=== PATIENT | female | born 1940 | race Caucasian/White ===

== ENCOUNTER 2018-01-02 04:56 | Inpatient (IN) ==
[2017-12-27 12:50] LABS: Appearance,Urine CLEAR; Bacteria,Urine FEW /hpf (0); Bilirubin,Urine NEG (NEG); Color,Urine YELLOW; Glucose,Urine (UA) NEGATIVE (NEG); Leukocyte Esterase,Urine NEG /uL (NEG); Mucus,Urine MANY /hpf (0); Protein,Urine NEG (NEG); Specific Gravity,Urine 1.019 (1.000-1.035); Urine Blood 0.2 mg/dL (<0.03); Urine Hyaline Cast 1 /lpf (0-2); Urine RBC 1 /hpf (0-1); Urine Squamous Epithelial Cell 7 /hpf (0-4); Urine WBC < 1 /hpf (0-4); Urobilinogen,Urine NEG (NEG)
[2017-12-27 13:26] LABS: Basophils # (Auto) 0 K/mcL (0.0-0.3); Basophils % (Auto) 0.6 % (0.0-2.0); Eosinophils # (Auto) 0.2 K/mcL (0.0-0.7); Eosinophils % (Auto) 3.6 % (0.0-7.0); Granulocytes % (Auto) 57.7 % (38.0-78.0); Lymphocytes # (Auto) 1.6 K/mcL (1.5-4.8); Lymphocytes % (Auto) 29.5 % (15.5-49.0); Mean Corpuscular HGB Conc 34.8 g/dL (31.0-36.0); Mean Corpuscular Hemoglobin 33.4 pg (26.0-34.0); Monocytes # (Auto) 0.5 K/mcL (0.1-0.9); Monocytes % (Auto) 8.6 % (1.0-12.0); Platelet Count 203 K/mcL (140-440); RBC 4.48 M/mcL (4.00-5.20); Red Cell Distribution Width 13.6 % (11.5-14.5)
[2017-12-27 13:31] LABS: Blood Urea Nitrogen 17 mg/dl (8-23)
[2018-01-02] MEDS ORDERED: ceFAZolin 1 GM VIAL IV SCH (07:00)
[2018-01-02] MEDS ORDERED: PREGABALIN 75 MG CAPSULE PO SCH (07:00)
[2018-01-02] MEDS ORDERED: oxyCODONE 10 MG TAB.ER.12H PO SCH (07:00)
[2018-01-02] MEDS ORDERED: CELECOXIB 200 MG CAPSULE PO SCH (07:00)
[2018-01-02] MEDS ORDERED: ACETAMINOPHEN 500 MG TABLET PO SCH (07:00)
[2018-01-02] MEDS ORDERED: DEXAMETHASONE 10 MG/ML VIAL IV ONE (07:40)
[2018-01-02] MEDS ORDERED: MIDAZOLAM 2 MG/2 ML VIAL IV ONE (07:40)
[2018-01-02] MEDS ORDERED: LIDOCAINE HCL/PF 100 MG/5 ML SYRINGE IV ONE (07:40)
[2018-01-02] MEDS ORDERED: ROPIVACAINE HCL/PF 20 ML VIAL IJ ONE (07:40)
[2018-01-02] MEDS ORDERED: PROPOFOL 200 MG/20 ML VIAL IV ONE (07:40)
[2018-01-02] MEDS ORDERED: KETAMINE 100 MG/ML ML IV ONE (07:40)
[2018-01-02] MEDS ORDERED: ePHEDrine 50 MG/ML AMPUL IV ONE (07:40)
[2018-01-02] MEDS ORDERED: fentaNYL 100 MCG/2 ML VIAL IV ONE (07:40)
[2018-01-02] MEDS ORDERED: GLYCOPYRROLATE 0.2 MG/ML VIAL IV ONE (07:40)
[2018-01-02] MEDS ORDERED: SUCCINYLCHOLINE 20 MG/ML ML IV ONE (07:40)
[2018-01-02] MEDS ORDERED: ONDANSETRON 4 MG/2 ML VIAL IV ONE (07:40)
[2018-01-02] MEDS ORDERED: TRANEXAMIC ACID 1,000 MG/10 ML VIAL IV ONE ×2 (07:40→08:50)
[2018-01-02] MEDS ORDERED: GENTAMICIN SULFATE 800 MG/20 ML VIAL IR ONE (08:13)
[2018-01-02] MEDS ORDERED: MEPERIDINE 25 MG/ML SYRINGE IV PRN (08:45)
[2018-01-02] MEDS ORDERED: LACTATED RINGERS 1,000 ML IV SCH (08:45)
[2018-01-02] MEDS ORDERED: IPRATROPIUM/ALBUTEROL 3 ML AMPUL.NEB NEB PRN (08:45)
[2018-01-02] MEDS ORDERED: NALOXONE HCL 0.4 MG/ML VIAL IV PRN (08:45)
[2018-01-02] MEDS ORDERED: METHOCARBAMOL 1,000 MG/10 ML VIAL IV PRN (08:45)
[2018-01-02] MEDS ORDERED: FLUMAZENIL 0.1 MG/ML ML IV PRN (08:45)
[2018-01-02] MEDS ORDERED: ONDANSETRON 4 MG/2 ML VIAL IV PRN ×2 (08:45→08:50)
[2018-01-02] MEDS ORDERED: HYDROmorphone 2 MG/ML VIAL IV PRN ×2 (08:45→08:50)
[2018-01-02] MEDS ORDERED: PROMETHAZINE 25 MG/ML VIAL IV PRN (08:45)
[2018-01-02] MEDS ORDERED: METOPROLOL TARTRATE 5 MG/5 ML VIAL IV PRN (08:45)
[2018-01-02] MEDS ORDERED: fentaNYL 100 MCG/2 ML VIAL IV PRN (08:45)
[2018-01-02] MEDS ORDERED: ATROPINE SULFATE 0.4 MG/ML VIAL IV PRN (08:45)
[2018-01-02] MEDS ORDERED: diphenhydrAMINE 50 MG/ML VIAL IV PRN (08:45)
[2018-01-02] MEDS ORDERED: ePHEDrine 50 MG/ML AMPUL IV PRN (08:45)
[2018-01-02] MEDS ORDERED: ACETAMINOPHEN 325 MG TABLET PO PRN (08:50)
[2018-01-02] MEDS ORDERED: HYDROCODONE/APAP 7.5/325MG TABLET PO PRN (08:50)
[2018-01-02] MEDS ORDERED: KETOROLAC 15 MG/ML VIAL IV PRN (08:50)
[2018-01-02] MEDS ORDERED: BISACODYL 10 MG SUPP.RECT PR PRN (08:50)
[2018-01-02] MEDS ORDERED: FLEETS ADULT ENEMA PR PRN (08:50)
[2018-01-02] MEDS ORDERED: BENZOCAINE/MENTHOL 1 LOZENGE PO PRN (08:50)
[2018-01-02] MEDS ORDERED: POLYETHYLENE GLYCOL 3350 17 GM PACKET PO PRN (08:50)
[2018-01-02] MEDS ORDERED: TEMAZEPAM 15 MG CAPSULE PO PRN (08:50)
[2018-01-02] MEDS ORDERED: MAGNESIUM HYDROXIDE 30 ML ORAL.SUSP PO PRN (08:50)
--- NOTE | 2018-01-02 09:23 | Operative Note ---
DATE OF OPERATION: 01/02/2018 PREOPERATIVE DIAGNOSIS: Right shoulder rotator cuff arthropathy and severe degenerative arthritis. POSTOPERATIVE DIAGNOSIS: Right shoulder rotator cuff arthropathy and severe degenerative arthritis with addition of biceps tendinopathy and large spurs. PROCEDURE: Right reverse total shoulder and biceps tenodesis of the right shoulder using Maninder components. SURGEON: Ariel Mcnamara MD SUPERVISOR [employer]: Gerson Dykes PA-C ANESTHESIA: General LMA anesthesia. COMPLICATIONS: None. IMPLANTS: Maninder implant. DESCRIPTION OF PROCEDURE: The patient was brought to the operating room and put to sleep with general LMA anesthesia. Once asleep, the patient had the right shoulder sterilely prepped and draped in the usual sterile fashion. Once this was confirmed as the operative site, we proceeded with the case. Ioban had been placed over the skin. Preop antibiotics and tranexamic acid had been given prior to the incision. We made a deltopectoral approach to the shoulder on the right side. Once this was done, we then made a deltopectoral approach, exposed the shoulder, removed the subscap and released this. This was tagged. We dislocated the shoulder, made the neck cut at 130 degrees with the guide with 20 degrees of retroversion. Once done, we did dislocate the humerus and made the neck cut. We placed a plate over the bone and then subluxed this posteriorly. The finding showed a rotator cuff tear, supraspinatus, infraspinatus, and biceps tendinopathy, and the biceps had been identified and released. I performed a biceps tenodesis in the bicipital groove in the subpectoral region using a figure-of-8 stitch of #2 FiberWire. This was secured, we subluxed the humeral head posteriorly and then performed a 360 degree capsular release. We placed a pinhole in the central portion of the glenoid at 10 degrees of inclination. This was reamed to the size of 36 removing osteophytes. We did place a central screw measuring 36 mm in length and metaglene. The glenosphere was a 36 mm glenosphere, 2 mm of offset, 2 mm of eccentricity. Once this was securely in place, we placed three additional screws per nurse's note. This was very secured. We then prepared the humerus. The humerus was broached up to size 8. We broached to a size 8 and trialed the standard thickness poly. This fit very nicely. We then implanted the standard thickness poly. We did place cement because the quality of the bone was very poor and this was allowed to set up. I placed a standard thickness poly. This was tapped into place and reduced. We irrigated thoroughly, repaired the deltopectoral interval and the skin with 2-0 Vicryl and adhesive closure. The patient tolerated this well without complication. RBH:wm Job ID: [id number] Doc ID: [id number] Ariel Mcnamara MD
--- NOTE | 2018-01-02 09:45 | XRay Report ---
CLINICAL INFORMATION: Postsurgical follow-up TECHNIQUE: AP and Y view of the right shoulder COMPARISON: None. FINDINGS: Status post right reverse shoulder arthroplasty. Normal anatomic alignment. There is postsurgical soft tissue gas. Scapula and clavicle are negative. No fracture. IMPRESSION: Status post reverse shoulder arthroplasty Interpreted and Authenticated by: Bonilla Villalobos 01/02/18
[2018-01-02] MEDS: DOCUSATE SODIUM 100 MG CAPSULE PO SCH ×2 (12:07→21:17)
[2018-01-02] MEDS: 0.45 % SODIUM CHLORIDE 1,000 ML IV SCH ×2 (12:07→20:00)
[2018-01-02] MEDS: 0.9 % SODIUM CHLORIDE 10 ML SYRINGE IV SCH ×3 (12:18→23:31)
[2018-01-02] MEDS: ceFAZolin 1 GM VIAL IV SCH ×2 (16:06→23:31)
[2018-01-02] MEDS ORDERED: SENNOSIDES 1 TABLET PO SCH (21:00)
[2018-01-03] MEDS: 0.9 % SODIUM CHLORIDE 10 ML SYRINGE IV SCH (06:40)
--- NOTE | 2018-01-03 07:28 | Orthopedic Progress Note ---
Subjective Patient information: Note initiated : 01/03/18 at 7:27 am Service Date, if different from initiated Date: [] Patient: Leslie Aguilera 77 y/o F admitted on 01/02/18 for Right Reverse Total Shoulder Arthroplasty with . Chief Complaint: [Pt is stable this morning on post operative day 1 without any significant concerns or complaints. Patients vital signs have remained stable. Patients dressing is dry and is grossly instact from a neurovascular and motor standpoint. Patients 10 point ROS is otherwise negative. ] Objective Vital signs: Vital Signs Temp Pulse Resp BP BP Pulse Ox 01/03/18 04:00 97.4 F 70 16 129/67 97 01/02/18 23:28 98.0 F 68 16 123/65 96 01/02/18 19:54 97.3 F 65 16 129/74 92 01/02/18 19:50 16 96 01/02/18 15:46 97.6 F 16 145/79 95 01/02/18 12:55 135/81 96 01/02/18 11:55 145/81 95 01/02/18 11:25 143/69 95 01/02/18 10:55 151/82 90 01/02/18 10:40 154/86 90 01/02/18 10:25 145/83 96 01/02/18 10:10 157/94 96 01/02/18 09:55 147/84 96 01/02/18 09:48 97.3 F 89 17 139/68 99 01/02/18 09:44 97.3 F 96 H 17 135/63 94 01/02/18 09:33 96 H 17 131/63 98 01/02/18 09:28 98 H 17 137/66 98 01/02/18 09:23 97.9 F 99 H 21 140/83 100 01/02/18 09:18 95 H 15 146/67 100 01/02/18 09:13 94 H 16 148/77 100 01/02/18 09:08 97.9 F 115 H 17 149/80 100 Intake and Output 01/02/18 01/03/18 01/03/18 21:59 05:59 13:59 Intake Total 1718 / 1718 180 / 180 Output Total 1600 / 1600 1550 / 1550 Balance 118 / 118 -1370 / -1370 Intake: IV 918 / 918 Sodium Chloride 0.45% 1,000 ml 918 / 918 @ 100 mls/hr IV .Q10H ARMAND Rx#: [id number] Oral 800 / 800 180 / 180 Output: Void Amount 1600 / 1600 1550 / 1550 Other: Weight 153 lb 8 oz Intake & Output: Intake & Output 01/02/18 01/03/18 01/03/18 21:59 05:59 13:59 Intake Total 1718 / 1718 180 / 180 Output Total 1600 / 1600 1550 / 1550 Balance 118 / 118 -1370 / -1370 Weight 153 lb 8 oz Intake: IV 918 / 918 Sodium Chloride 0.45% 1,000 ml 918 / 918 @ 100 mls/hr IV .Q10H ARMAND Rx#: [id number] Oral 800 / 800 180 / 180 Output: Void Amount 1600 / 1600 1550 / 1550 Incision: Yes healing Incision clean and dry: Yes Dressing: Yes clean Weight bearing status: full Neurological exam IM: Yes motor sensory intact, Yes neurovascular intact Extremities exam IM: Yes Foot pink and warm, Yes neurovascular intact - Labs CBC & BMP: 12/27/17 11:24 12/27/17 11:24 Labs: Orthopedic Labs 12/27/17 11:24 PT 13.0 INR 1.0 APTT 31 12/27/17 11:24 Hgb 15.0 Hct 43.0 Assessment and Plan (1) History of reverse total replacement of right shoulder joint The patient has been educated regarding dressing care, Physical Therapy recommendations, home exercises, restrictions, and follow up appointments. The patient has had all necessary DME prescribed. The patient has remained relatively stable during their hospital course.Leave Dermabond patch intact until followup Status: Acute
--- NOTE | 2018-01-03 07:31 | Discharge Summary ---
Ortho Discharge - TSA - Patient Instructions Diet: Regular Diet Activity: activity as tolerated, weight bearing as tolerated Total Shoulder Protocol: Leave immobilizer in place except for bathing and ROM. Abduction pillow. Continue to wear sling until seen by physician. Codman Pendulum : These exercises use momentum produced by your body to move your shoulder joint. Bend your knees and shift your weight to your front leg, then back, allowing your arm to swing in the same directions. Using the same technique, alternately shift your weight between your right and left legs, allowing your arm to swing from side to side. These exercises are also performed in counterclockwise and clockwise circular motions. Typically these exercises are performed several times per day, for a set number repetitions or minutes, such as 20 times in a row or 5 minutes at a time. Dressing Care: May shower in 2 days - Problem Maintenance (1) History of reverse total replacement of right shoulder joint Status: Acute - Follow Up Plan Follow Up Appointments: Gerson Dykes PA-C [Physician Thermal Cutting Tracer Machine Operator] - 01/17/18 10:00 am Disposition: Home, Self-Care Prognosis: Good Rehab Potential: Good I certify that the patient requires SNF services: No Overall status at discharge: patient is progressing back to baseline - Orders For Discharge Prescriptions: Docusate Sodium [Colace] 100 mg PO BID #60 cap Hydrocodone/APAP 7.5/325Mg [Terril 7.5-325Mg] 1 - 2 tab PO Q4HP PRN #75 tab PRN Reason: Pain Level 3-6
[2018-01-03] MEDS: DOCUSATE SODIUM 100 MG CAPSULE PO SCH (09:15)
== END 2018-01-03 10:00 | disposition home or self-care (01) | DRG 483 ==
LOC: MEDSUR 04:56
PROVIDERS: ADMIT Orthopaedic Surgery; ATTEND Orthopaedic Surgery